=== PATIENT | male | born 1985 | race Caucasian/White ===

== ENCOUNTER 2022-12-24 23:35 | Emergency (ER) | payer MEDICAID, OTHER ==
[~2022-12-24] VITALS: Ht 188 cm; Wt 95.3 kg
[2022-12-24 23:35] VITALS: BP 124/76; PULSE 102; RESP 17; TEMP 97.8; O2SAT 97
[2022-12-25] MEDS ORDERED: cefTRIAXone 1,000 MG in LIDOCAINE MPF 1% 2.1 ML IM ONE ×2
[2022-12-25] MEDS ORDERED: LIDOCAINE MPF 1% 5 ML ONE (00:07)
[2022-12-25] MEDS ORDERED: cefTRIAXone 1,000 MG VIAL ONE (00:07)
[2022-12-25] MEDS ORDERED: CEPH-588 PO (00:27)
[2022-12-25 00:59] VITALS: BP 127/72; PULSE 94; RESP 17; O2SAT 99
== END 2022-12-25 00:37 ==
LOC: MED 23:35
DX: L03.115 Cellulitis of right lower limb (principal); L97.818 Non-pressure chronic ulcer of other part of right lower leg with other specified severity; Z79.899 Other long term (current) drug therapy; Z98.890 Other specified postprocedural states
CPT/HCPCS: 73590; 96372; 99283; J0696; J2001; Q0092